=== PATIENT | male | born 1995 | race Caucasian/White ===

== ENCOUNTER 2016-09-12 14:02 | Emergency (ER) | payer BC, MEDICAID ==
[~2016-09-12] VITALS: Ht 185.4 cm; Wt 77.1 kg
[~2016-09-12 14:02] MED LIST: CLARTIN; LRT10T; MINO45TA PO; NAPR-243 PO; VITIAMS
[2016-09-12 15:29] LABS: BASOPHILS # (AUTO) 0.1 10^3/uL (0.0-0.1); BASOPHILS % (AUTO) 1 % (0-10); EOSINOPHILS # (AUTO) 0.2 10^3/uL (0.0-0.3); EOSINOPHILS % (AUTO) 3 % (0-10); LYMPHOCYTES # (AUTO) 1.4 X 10^3 (1.0-4.0); LYMPHOCYTES % (AUTO) 21 % (12-44); MEAN CORPUSCULAR HEMOGLOBIN 30 PG (25-34); MEAN CORPUSCULAR HGB CONC 36 G/DL (32-36); MEAN CORPUSCULAR VOLUME 85 FL (80-99); MEAN PLATELET VOLUME 10.2 FL (7.4-10.4); MONOCYTES # (AUTO) 0.3 X 10^3 (0.0-1.0); MONOCYTES % (AUTO) 5 % (0-12); NEUTROPHILS # (AUTO) 4.6 X 10^3 (1.8-7.8); NEUTROPHILS % (AUTO) 70 % (42-75); PLATELET COUNT 209 10^3/uL (130-400); RED BLOOD COUNT 5.56 10^6/uL (4.35-5.85); RED CELL DISTRIBUTION WIDTH 12.8 % (10.0-14.5); WHITE BLOOD COUNT 6.5 10^3/uL (4.3-11.0)
[2016-09-12 15:40] LABS: ALANINE AMINOTRANSFERASE 11 U/L (0-55); ANION GAP 7 MMOL/L (5-14); ASPARTATE AMINO TRANSFERASE 15 U/L (5-34); BILIRUBIN,TOTAL 0.5 MG/DL (0.1-1.0); BLOOD UREA NITROGEN 12 MG/DL (7-18); BUN/CREATININE RATIO 13; CALCIUM 9.5 MG/DL (8.5-10.1); CARBON DIOXIDE 26 MMOL/L (21-32); CHLORIDE 108 MMOL/L (98-107); CREATININE SERUM 0.93 MG/DL (0.60-1.30); GFR ESTIMATED > 60; GLUCOSE 95 MG/DL (70-105); LIPASE 18 U/L (8-78); POTASSIUM 4.2 MMOL/L (3.6-5.0); SODIUM 141 MMOL/L (135-145); TOTAL PROTEIN 7.1 G/DL (6.4-8.2)
[2016-09-12 15:40] LABS: BILIRUBIN,URINE NEGATIVE (NEGATIVE); KETONES,URINE NEGATIVE (NEGATIVE); LEUKOCYTE ESTERASE ,URINE NEGATIVE (NEGATIVE); NITRITE,URINE NEGATIVE (NEGATIVE); PH,URINE 6.5 (5-9); PROTEIN,URINE NEGATIVE (NEGATIVE); UROBILINOGEN,URINE NORMAL (NORMAL)
[2016-09-12 15:45] LABS: ALCOHOL < 10 MG/DL (<10)
[2016-09-12] MEDS ORDERED: NS IV 1000 ML 1,000 ML IV ONE (16:04)
[2016-09-12] MEDS ORDERED: FAMOTIDINE 20MG/2ML IV (PEPCID) IV STA (16:04)
[2016-09-12] MEDS ORDERED: ONDANSETRON 4 MG/2 ML (SDV) Z0FRAN IVP ONE (16:15)
[2016-09-12] MEDS ORDERED: IOHEXOL 350 MG/ML 100 ML (OMNIPAQUE 350) VIAL IV ONE (16:15)
[2016-09-12] MEDS ORDERED: NS 100 ML (IVPB) BAG IV ONE (16:15)
--- NOTE | 2016-09-12 16:56 | Diagnostic Imaging Report ---
PROCEDURE: CT abdomen and pelvis with contrast. TECHNIQUE: Multiple contiguous axial images were obtained through the abdomen and pelvis after administration of intravenous contrast. INDICATION: Abdominal pain, loss of appetite, nausea, vomiting. COMPARISON: October 04, 2011 FINDINGS: The visualized lung bases are clear. The liver is unremarkable. Calcified splenic granuloma. Otherwise, the spleen is unremarkable. The adrenal glands are unremarkable. The gallbladder is grossly unremarkable. The pancreas is unremarkable. The kidneys are unremarkable without evidence of hydronephrosis. No aneurysmal dilatation of the abdominal aorta. The urinary bladder is partially decompressed, though otherwise unremarkable. No bowel obstruction or pneumatosis. The appendix is not definitively identified. No definite secondary signs of acute appendicitis. No pneumatosis. Small amount of free fluid is noted within the lower pelvis. No free air. No adenopathy identified within abdomen or pelvis. No intramuscular hematoma. No acute osseous abnormality. IMPRESSION: 1. The appendix is not definitely identified, though no secondary signs of acute appendicitis. 2. Small amount of free fluid within the lower pelvis, of uncertain etiology. No definite evidence of free air. 3. Additional findings as above. Dictated by: Dictated on workstation # [id number]
[2016-09-12] MEDS ORDERED: ONDA8TAB13 PO (17:27)
--- NOTE | 2016-09-12 17:27 | ED General ---
General Chief Complaint: General Problems/Pain Stated Complaint: DIFF URINATING/PAIN IN HANDS AND FEET Nursing Triage Note: Pt c/o lower abd pain, inability to sleep, inability to urinate, sweaty palms and feet, and generally not feeling well for several days. Nursing Sepsis Screen: No Definite Risk Source of Information: Patient, Family Exam Limitations: No Limitations History of Present Illness Time Seen by Provider: 14:54 Initial Comments 21-year-old male patient presents to the emergency department complains of generalized lower abdominal pain and insomnia, hesitancy, sweaty palms, sweaty feet, and generalized fatigue. States onset one month ago. Reports 10 pound weight loss in the last month. Denies contacting his family practitioner for evaluation. Denies fevers. Patient denies traveling outside of the area or country, new foods, or close contacts with similar symptoms. Denies mosquito or tick bites. Patient is sexually active and denies using condoms consistently. Patient's been with his current partner 3 years. Does have a history of other sexual partners. Timing/Duration: Constant, Other (1 month onset) Modifying Factors: worse with Other (denies modifying factors) Allergies and Home Medications Allergies Coded Allergies: No Known Drug Allergies (Unverified , 06/23/10) Home Medications Loratadine 10 Mg Tab, PRN, (Reported) Ondansetron 8 Mg Tab.rapdis, 8 MG PO Q6H PRN for NAUSEA, #10 Ref 0 Prescribed by: KARLI WATSON on 09/12/16 1727 Constitutional: No chills, diaphoresis, No dizziness, No fever, malaise, other (fatigue) EENTM: no symptoms reported Respiratory: No cough, No short of breath, No stridor, No wheezing Cardiovascular: No chest pain, No palpitations, No syncope Gastrointestinal: abdominal pain, No constipation, diarrhea, No dysphagia, No hematemesis, No heartburn, No jaundice, loss of appetite, No melena, nausea, vomiting Genitourinary: see HPI, decreased output, No discharge, No dysuria, No frequency, No hematuria, hesitancy, No pain Musculoskeletal: no symptoms reported Skin: no symptoms reported Psychiatric/Neurological: No Symptoms Reported All Other Systems Reviewed Negative Unless Noted: Yes (Negative excepted noted.) Past [id number]-[id number] Hx Patient Social History Alcohol Use: Denies Use Recreational Drug Use: No Recent Foreign Travel: No Contact w/Someone Who Travel: No Recent Infectious Disease Expo: No Recent Hopitalizations: No Immunizations Up To Date Date of Influenza Vaccine: Mar 13, 2013 Surgeries HX Surgeries: No Respiratory Hx Respiratory Disorders: No Cardiovascular Hx Cardiac Disorders: No Neurological Hx Neurological Disorders: No Genitourinary Hx Genitourinary Disorders: No Gastrointestinal Hx Gastrointestinal Disorders: Yes Gastrointestinal Disorders: Gastroesophageal Reflux Musculoskeletal Hx Musculoskeletal Disorders: No Endocrine Hx Endocrine Disorders: No Reviewed Nursing Assessment Reviewed/Agree w Nursing PMH: Yes Family Medical History Significant Family History: No Pertinent Family Hx Physical Exam Vital Signs Vital Sign - Last 12Hours 09/12/16 14:32 Temp 99.3 Pulse 74 Resp 18 B/P (MAP) 135/72 Pulse Ox 97 O2 Delivery Room Air Capillary Refill : Less Than 3 Seconds General Appearance: No Apparent Distress, WD/WN, Thin HEENT: PERRL/EOMI, TMs Normal, Normal ENT Inspection, Pharyngeal Erythema Neck: Full Range of Motion, Normal Inspection, Non Tender, Supple, No Lymphadenopathy (L), No Lymphadenopathy (R) Respiratory: Lungs Clear, Normal Breath Sounds, No Respiratory Distress Cardiovascular: Regular Rate, Rhythm, No Edema, No Murmur, Normal Peripheral Pulses Gastrointestinal: Normal Bowel Sounds, No Organomegaly, Soft, No Distended, No Guarding, No Mass, No Rebound, Tenderness (generalized lower abdominal tenderness) Back: Normal Inspection, No CVA Tenderness, No Vertebral Tenderness Extremity: Normal Capillary Refill, Normal Inspection, Non Tender Neurologic/Psychiatric: Alert, Oriented x3, No Motor/Sensory Deficits, Normal Mood/Affect, primer charger II-XII Norm as Tested Skin: Normal Color, Warm/Dry Progress/Results/Core Measures Results/Orders Lab Results Laboratory Tests Test 09/12/16 15:01 09/12/16 15:34 Range/Units White Blood Count 6.5 4.3-11.0 10^3/uL Red Blood Count 5.56 4.35-5.85 10^6/uL Hemoglobin 16.8 13.3-17.7 G/DL Hematocrit 47 40-54 % Mean Corpuscular Volume 85 80-99 FL Mean Corpuscular Hemoglobin 30 25-34 PG Mean Corpuscular Hemoglobin Concent 36 32-36 G/DL Red Cell Distribution Width 12.8 10.0-14.5 % Platelet Count 209 130-400 10^3/uL Mean Platelet Volume 10.2 7.4-10.4 FL Neutrophils (%) (Auto) 70 42-75 % Lymphocytes (%) (Auto) 21 12-44 % Monocytes (%) (Auto) 5 0-12 % Eosinophils (%) (Auto) 3 0-10 % Basophils (%) (Auto) 1 0-10 % Neutrophils # (Auto) 4.6 1.8-7.8 X 10^3 Lymphocytes # (Auto) 1.4 1.0-4.0 X 10^3 Monocytes # (Auto) 0.3 0.0-1.0 X 10^3 Eosinophils # (Auto) 0.2 0.0-0.3 10^3/uL Basophils # (Auto) 0.1 0.0-0.1 10^3/uL Erythrocyte Sedimentation Rate 1 0-15 MM/HR Sodium Level 141 135-145 MMOL/L Potassium Level 4.2 3.6-5.0 MMOL/L Chloride Level 108 H 98-107 MMOL/L Carbon Dioxide Level 26 21-32 MMOL/L Anion Gap 7 5-14 MMOL/L Blood Urea Nitrogen 12 7-18 MG/DL Creatinine 0.93 0.60-1.30 MG/DL Estimat Glomerular Filtration Rate > 60 BUN/Creatinine Ratio 13 Glucose Level 95 70-105 MG/DL Calcium Level 9.5 8.5-10.1 MG/DL Total Bilirubin 0.5 0.1-1.0 MG/DL Aspartate Amino Transf (AST/SGOT) 15 5-34 U/L Alanine Aminotransferase (ALT/SGPT) 11 0-55 U/L Alkaline Phosphatase 88 40-136 U/L C-Reactive Protein High Sensitivity 0.01 0.00-0.50 MG/DL Total Protein 7.1 6.4-8.2 G/DL Albumin 5.0 H 3.2-4.5 G/DL Lipase 18 8-78 U/L TSH [place] Testing 1.21 0.35-4.94 UIU/ML Serum Alcohol < 10 <10 MG/DL Monoscreen NEGATIVE NEGATIVE Urine Color YELLOW Urine Clarity CLEAR Urine pH 6.5 5-9 Urine Specific Bruno 1.020 1.016-1.022 Urine Protein NEGATIVE NEGATIVE Urine Glucose (UA) NEGATIVE NEGATIVE Urine Ketones NEGATIVE NEGATIVE Urine Nitrite NEGATIVE NEGATIVE Urine Bilirubin NEGATIVE NEGATIVE Urine Urobilinogen NORMAL NORMAL MG/DL Urine Leukocyte Esterase NEGATIVE NEGATIVE Urine RBC (Auto) NEGATIVE NEGATIVE Urine RBC NONE /HPF Urine WBC NONE /HPF Urine Squamous Epithelial Cells NONE /HPF Urine Crystals NONE /LPF Urine Amorphous Sediment LARGE FLORIDALMA URATES H /LPF Urine Bacteria NEGATIVE /HPF Urine Casts NONE /LPF Urine Mucus NEGATIVE /LPF Urine Culture Indicated NO Urine Opiates Screen NEGATIVE NEGATIVE Urine Oxycodone Screen NEGATIVE NEGATIVE Urine Methadone Screen NEGATIVE NEGATIVE Urine Propoxyphene Screen NEGATIVE NEGATIVE Urine Barbiturates Screen NEGATIVE NEGATIVE Ur Tricyclic Antidepressants Screen NEGATIVE NEGATIVE Urine Phencyclidine Screen NEGATIVE NEGATIVE Urine Amphetamines Screen NEGATIVE NEGATIVE Urine Methamphetamines Screen NEGATIVE NEGATIVE Urine Benzodiazepines Screen NEGATIVE NEGATIVE Urine Cocaine Screen NEGATIVE NEGATIVE Urine Cannabinoids Screen POSITIVE H NEGATIVE My Orders Orders - KARLI WATSON Alcohol (09/12/16 15:23) Cbc With Automated Diff (09/12/16 15:23) Comprehensive Metabolic Panel (09/12/16 15:23) Drug Screen Stat (Urine) (09/12/16 15:23) Lipase (09/12/16 15:23) Thyroid Analyzer (09/12/16 15:23) Ua Culture If Indicated (09/12/16 15:23) Saline Lock/Iv-Start (09/12/16 15:23) Ct Abdomen/Pelvis W (09/12/16 16:04) Ns Iv 1000 Ml (Sodium Chloride 0.9%) (09/12/16 16:04) Ondansetron Injection (Zofran Injectio (09/12/16 16:15) Famotidine Injection (Pepcid Injection) (09/12/16 16:04) Hs C Reactive Protein (09/12/16 16:04) Erythrocyte Sedimentation Rate (09/12/16 16:04) Monotest (09/12/16 16:04) Iohexol Injection (Omnipaque 350 Mg/Ml 1 (09/12/16 16:15) Ns (Ivpb) (Sodium Chloride 0.9% Ivpb Bag (09/12/16 16:15) Tick Panel With Lyme Eia (09/12/16 16:15) Medications Given in ED Current Medications Medications Dose Ordered Sig/Rich Route Start Time Stop Time Status Last Admin Dose Admin Iohexol 100 ml ONCE ONCE IV 09/12/16 16:15 09/12/16 16:16 DC 09/12/16 16:34 100 ML Ondansetron HCl 4 mg ONCE ONCE IVP 09/12/16 16:15 09/12/16 16:16 DC 09/12/16 16:23 4 MG Sodium Chloride 100 ml ONCE ONCE IV 09/12/16 16:15 09/12/16 16:16 DC 09/12/16 16:34 80 ML Sodium Chloride 1,000 ml @ 0 mls/hr Q0M ONCE IV 09/12/16 16:04 09/12/16 16:07 DC 09/12/16 16:23 1,000 MLS/HR Vital Signs/I&O Vital Sign - Last 12Hours 09/12/16 09/12/16 14:32 17:53 Temp 99.3 Pulse 74 68 Resp 18 18 B/P (MAP) 135/72 Pulse Ox 97 97 O2 Delivery Room Air Intake and Output 09/13/16 00:00 Intake Total 1000 ml Balance 1000 ml Blood Pressure Mean: 93 Diagnostic Imaging Diagonstic Imaging: CT Plain Films/CT/US/NM/MRI: abdomen, pelvis Comments FINDINGS: The visualized lung bases are clear. The liver is unremarkable. Calcified splenic granuloma. Otherwise, the spleen is unremarkable. The adrenal glands are unremarkable. The gallbladder is grossly unremarkable. The pancreas is unremarkable. The kidneys are unremarkable without evidence of hydronephrosis. No aneurysmal dilatation of the abdominal aorta. The urinary bladder is partially decompressed, though otherwise unremarkable. No bowel obstruction or pneumatosis. The appendix is not definitively identified. No definite secondary signs of acute appendicitis. No pneumatosis. Small amount of free fluid is noted within the lower pelvis. No free air. No adenopathy identified within abdomen or pelvis. No intramuscular hematoma. No acute osseous abnormality. IMPRESSION: 1. The appendix is not definitely identified, though no secondary signs of acute appendicitis. 2. Small amount of free fluid within the lower pelvis, of uncertain etiology. No definite evidence of free air. 3. Additional findings as above. Dictated by: Dictated on workstation # [id number] Reviewed: Reviewed by Me (radiology report reviewed by me) Departure Communication Progress Notes All laboratory and diagnostic findings discussed with the patient and family. Patient reports feeling slightly better with IV fluids and medications. I have instructed patient to follow-up with his primary care physician for recheck and further testing. All return precautions were discussed with the patient and family as described in the discharge instructions of this report. All voiced understanding and agree with the treatment plan. Impression Impression: Primary Impression: Abdominal pain Qualified Codes: R10.30 - Lower abdominal pain, unspecified Additional Impressions: Fatigue Qualified Codes: R53.83 - Other fatigue Weight loss, unintentional Disposition: 01 HOME, SELF-CARE Condition: Improved Departure-Patient Inst. Decision time for Depature: 17:23 Referrals: ANNA BHAT MD (PCP/Family) Primary Care Physician Patient Instructions: Acute Abdomen (Belly Pain), Adult (DC), Fatigue (DC) Add. Discharge Instructions: All discharge instructions reviewed with patient and/or family. Voiced understanding. Medications as instructed. Tylenol [id number] and ibuprofen [id number] if needed. No use of marijuana. Push fluids. Clear liquid diet until symptoms improve, then increase diet slowly to a low-fat , bland diet. Follow-up with Dr. Stoner or Cristhian Johnson APRN for a recheck and further testing. Return to the emergency department for worsened symptoms or any other concerns. Scripts Ondansetron (Ondansetron Odt) 8 Mg Tab.rapdis 8 MG PO Q6H Y for NAUSEA, #10 TAB 0 Refills Prov: KARLI WATSON 09/12/16 KARLI WATSON Sep 12, 2016 17:27
[2016-09-12 17:53] VITALS: BP 122/68
[2016-09-14 13:21] LABS: EHRLICHIA CHAFFEENSIS G ABY <1:16 (<1:16)
[2016-09-14 13:26] LABS: IGG ROCKY MOUNTAIN SPOTTED FEV <1:16 (<1:16); IGM ROCKY MOUNTAIN SPOTTED FEV <1:10 (<1:10)
[2016-09-15 07:09] LABS: LYME ANTIBODY C 0.44 (0.00-0.90); TULAREMIA ANTIBODY <1:20
== END 2016-09-12 17:53 | disposition home or self-care (01) ==
LOC: EDUNIT# 14:02 → ER 14:05
DX: R10.30 Lower abdominal pain, unspecified (principal); R53.83 Other fatigue; R63.4 Abnormal weight loss
CPT/HCPCS: 36415; 74177; 80053; 80306; 80320; 81000; 83690; 84443; 85025; 85652; 86141; 86308; 86618; 86666; 86668; 86757; 96374; 96375

== ENCOUNTER 2018-09-11 10:00 | Emergency (ER) | payer BC ==
[~2018-09-11] VITALS: Ht 185.4 cm; Wt 81.6 kg
[~2018-09-11 10:00] MED LIST changes: +ONDA8TAB13 PO
--- OUTSIDE RECORDS SUMMARY | 2018-09-11 10:04 | XMS REPORT ---
Author Author DENNY YANG [facility] Address [address] [place] [address] Care Team Providers Care Continuous Improvement Facilitator Name Role Phone DENNY YANG Unavailable PROBLEMS Type Condition ICD9-CM Code WAU97-CT Code Onset Dates Condition Status SNOMED Code Problem Migraine without aura and without status migrainosus, not intractable G43.009 Active [id number] ALLERGIES No Known Allergies ENCOUNTERS Encounter Location Date Diagnosis [facility] IN [facility] [id number] [place] [phone] May, 2018 Acute gastroenteritis K52.9 ; Fatigue R53.83 and Acute sinusitis J01.90 [facility] [id number] [place] [phone] Jun, Cough R05 and Acute nasopharyngitis J00 [facility] [address] [phone] 08 Jan, 2017 Sebaceous cyst L72.3 [facility] [address] [phone] Dec, Migraine without aura and without status migrainosus, not intractable G43.009 IMMUNIZATIONS No Known Immunizations SOCIAL HISTORY Never Assessed REASON FOR VISIT N/V since today. reports nausea off et on for a few weeks. denies diarrhea. [email or web address] PLAN OF CARE Activity Details Follow Up if not improving with PCP or reg follow up Reason: VITAL SIGNS Height 72 in 2018-05-22 Weight 183.2 lbs 2018-05-22 Temperature 98.6 degrees Fahrenheit 2018-05-22 Heart Rate 82 bpm 2018-05-22 Respiratory Rate 20 2018-05-22 BMI 24.84 kg/m2 2018-05-22 Blood pressure systolic 124 mmHg 2018-05-22 Blood pressure diastolic 78 mmHg 2018-05-22 MEDICATIONS Medication Instructions Dosage Frequency Start Date End Date Duration Status Ondansetron HCl 8 MG Orally every 8 hours as needed 1 tablet May, 7 days Active PredniSONE 20 MG Orally Once a day 2 tablet 24h May, 5 days Active RESULTS No Results PROCEDURES No Known procedures INSTRUCTIONS MEDICATIONS ADMINISTERED No Known Medications MEDICAL (GENERAL) HISTORY Type Description Date Surgical History tonsillectomy and adenoidectomy
--- OUTSIDE RECORDS SUMMARY | 2018-09-11 10:05 | XMS REPORT | Continuity of Care Document ---
Author Author [facility] Organization [facility] Address Unknown Phone Unavailable Allergies Active Description Code Type Severity Reaction Onset Reported/Identified Relationship to Patient Clinical Status Yes No Known Drug Allergies [id number] Drug Allergy Unknown N/A 06/23/2010 Medications There is no data. Problems Date Dx Coded Attending Type Code Diagnosis Diagnosed By 10/05/2011 Ot 789.03 ABDOMINAL PAIN, RIGHT LOWER QUADRANT 12/02/2013 RIGOBERTO PENNINGTON DO S Ot 382.9 OTITIS MEDIA NOS 12/02/2013 RIGOBERTO PENNINGTON DO S Ot 462 ACUTE PHARYNGITIS 09/12/2016 Ot 786.50 CHEST PAIN NOS 09/12/2016 Ot V15.59 PERSONAL HISTORY OF OTHER INJURY 09/12/2016 RIGOBERTO PENNINGTON DO S Ot 397.0 TRICUSPID VALVE DISEASE 09/12/2016 RIGOBERTO PENNINGTON DO S Ot 786.50 CHEST PAIN NOS 09/12/2016 Ot 382.9 OTITIS MEDIA NOS 09/12/2016 Ot 462 ACUTE PHARYNGITIS 09/12/2016 KARLI MENCHACA Ot R10.30 LOWER ABDOMINAL PAIN, UNSPECIFIED 09/12/2016 KARLI MENCHACA Ot R53.83 OTHER FATIGUE 09/12/2016 KARLI MENCHACA Ot R63.4 ABNORMAL WEIGHT LOSS 09/12/2016 Ot 786.50 CHEST PAIN NOS 09/12/2016 Ot V15.59 PERSONAL HISTORY OF OTHER INJURY 09/12/2016 RIGOBERTO PENNINGTON DO S Ot 397.0 TRICUSPID VALVE DISEASE 09/12/2016 RIGOBERTO PENNINGTON DO S Ot 786.50 CHEST PAIN NOS 09/12/2016 Ot 382.9 OTITIS MEDIA NOS 09/12/2016 Ot 462 ACUTE PHARYNGITIS 09/12/2016 Ot 786.50 CHEST PAIN NOS 09/12/2016 Ot V15.59 PERSONAL HISTORY OF OTHER INJURY 09/12/2016 RIGOBERTO PENNINGTON DO S Ot 397.0 TRICUSPID VALVE DISEASE 09/12/2016 RIGOBERTO PENNINGTON DO S Ot 786.50 CHEST PAIN NOS 09/12/2016 Ot 382.9 OTITIS MEDIA NOS 09/12/2016 Ot 462 ACUTE PHARYNGITIS 09/14/2016 KARLI MENCHACA Ot R10.30 LOWER ABDOMINAL PAIN, UNSPECIFIED 09/14/2016 KARLI MENCHACA Ot R53.83 OTHER FATIGUE 09/14/2016 KARLI MENCHACA Ot R63.4 ABNORMAL WEIGHT LOSS 10/21/2016 Ot 786.50 CHEST PAIN NOS 10/21/2016 Ot V15.59 PERSONAL HISTORY OF OTHER INJURY 10/21/2016 NINFA PENNINGTON DOLINE S Ot 397.0 TRICUSPID VALVE DISEASE 10/21/2016 NINFA PENNINGTON DOLINE S Ot 786.50 CHEST PAIN NOS 10/21/2016 Ot 382.9 OTITIS MEDIA NOS 10/21/2016 Ot 462 ACUTE PHARYNGITIS 11/17/2016 Ot 786.50 CHEST PAIN NOS 11/17/2016 Ot V15.59 PERSONAL HISTORY OF OTHER INJURY 11/17/2016 NINFA PENNINGTON DOLINE S Ot 397.0 TRICUSPID VALVE DISEASE 11/17/2016 NINFA PENNINGTON DOLINE S Ot 786.50 CHEST PAIN NOS 11/17/2016 Ot 382.9 OTITIS MEDIA NOS 11/17/2016 Ot 462 ACUTE PHARYNGITIS Procedures There is no data. Results Test Result Range Complete blood count (CBC) with automated white blood cell (WBC) differential - 09/12/16 15:01 Blood leukocytes automated count (number/volume) 6.5 10*3/uL 4.3-11.0 Blood erythrocytes automated count (number/volume) 5.56 10*6/uL 4.35-5.85 Venous blood hemoglobin measurement (mass/volume) 16.8 g/dL 13.3-17.7 Blood hematocrit (volume fraction) 47 % 40-54 Automated erythrocyte mean corpuscular volume 85 [foz_us] 80-99 Automated erythrocyte mean corpuscular hemoglobin (mass per erythrocyte) 30 pg 25-34 Automated erythrocyte mean corpuscular hemoglobin concentration measurement ( mass/volume) 36 g/dL 32-36 Automated erythrocyte distribution width ratio 12.8 % 10.0-14.5 Automated blood platelet count (count/volume) 209 10*3/uL 130-400 Automated blood platelet mean volume measurement 10.2 [foz_us] 7.4-10.4 Automated blood neutrophils/100 leukocytes 70 % 42-75 Automated blood lymphocytes/100 leukocytes 21 % 12-44 Blood monocytes/100 leukocytes 5 % 0-12 Automated blood eosinophils/100 leukocytes 3 % 0-10 Automated blood basophils/100 leukocytes 1 % 0-10 Blood neutrophils automated count (number/volume) 4.6 10*3 1.8-7.8 Blood lymphocytes automated count (number/volume) 1.4 10*3 1.0-4.0 Blood monocytes automated count (number/volume) 0.3 10*3 0.0-1.0 Automated eosinophil count 0.2 10*3/uL 0.0-0.3 Automated blood basophil count (count/volume) 0.1 10*3/uL 0.0-0.1 Comprehensive metabolic panel - 09/12/16 15:01 Serum or plasma sodium measurement (moles/volume) 141 mmol/L 135-145 Serum or plasma potassium measurement (moles/volume) 4.2 mmol/L 3.6-5.0 Serum or plasma chloride measurement (moles/volume) 108 mmol/L 98-107 Carbon dioxide 26 mmol/L 21-32 Serum or plasma anion gap determination (moles/volume) 7 mmol/L 5-14 Serum or plasma urea nitrogen measurement (mass/volume) 12 mg/dL 7-18 Serum or plasma creatinine measurement (mass/volume) 0.93 mg/dL 0.60-1.30 Serum or plasma urea nitrogen/creatinine mass ratio 13 NRG Serum or plasma creatinine measurement with calculation of estimated glomerular filtration rate > NRG Serum or plasma glucose measurement (mass/volume) 95 mg/dL 70-105 Serum or plasma calcium measurement (mass/volume) 9.5 mg/dL 8.5-10.1 Serum or plasma total bilirubin measurement (mass/volume) 0.5 mg/dL 0.1-1.0 Serum or plasma alkaline phosphatase measurement (enzymatic activity/volume) 88 U/L 40-136 Serum or plasma aspartate aminotransferase measurement (enzymatic activity/ volume) 15 U/L 5-34 Serum or plasma alanine aminotransferase measurement (enzymatic activity/volume ) 11 U/L 0-55 Serum or plasma protein measurement (mass/volume) 7.1 g/dL 6.4-8.2 Serum or plasma albumin measurement (mass/volume) 5.0 g/dL 3.2-4.5 Lipase - 09/12/16 15:01 Lipase 18 U/L 8-78 Serum or plasma thyrotropin measurement by detection limit <=0.05 miu/l (units/ volume) - 09/12/16 15:01 Serum or plasma thyrotropin measurement by detection limit <=0.05 miu/l (units/ volume) 1.21 u[iU]/mL 0.35-4.94 Serum or plasma ethanol measurement (mass/volume) - 09/12/16 15:01 Serum or plasma ethanol measurement (mass/volume) < mg/dL <10 Serum heterophile antibody titer - 09/12/16 15:01 Serum heterophile antibody titer NEGATIVE NEGATIVE Serum or plasma C reactive protein measurement (mass/volume) - 09/12/16 15:01 Serum or plasma C reactive protein measurement (mass/volume) 0.01 mg /dL 0.00-0.50 Erythrocyte sedimentation rate by westergren method - 09/12/16 15:01 Erythrocyte sedimentation rate by westergren method 1 mm 0-15 Tick identification panel - 09/12/16 15:01 Serum Ehrlichia chaffeensis IgG antibody detection <1:16 <1:16 Serum Ehrlichia chaffeensis IgM antibody detection <1:10 <1:10 Serum Rickettsia rickettsii IgG antibody assay (units/volume) < <1:16 [place] spotted fever panel < <1:10 Francisella tularensis antibody assay <1:20 NRG Borrelia burgdorferi (Lyme disease) antibody 0.44 0.00- 0.90 Urine drug screening test - 09/12/16 15:34 Urine phencyclidine detection by screening method NEGATIVE NEGATIVE Urine benzodiazepines detection by screening method NEGATIVE NEGATIVE Urine cocaine detection NEGATIVE NEGATIVE Urine amphetamines detection by screening method NEGATIVE NEGATIVE Urine methamphetamine detection by screening method NEGATIVE NEGATIVE Urine cannabinoids detection by screening method POSITIVE NEGATIVE Urine opiates detection by screening method NEGATIVE NEGATIVE Urine barbiturates detection NEGATIVE NEGATIVE Screening urine tricyclic antidepressants detection NEGATIVE NEGATIVE Urine methadone detection by screening method NEGATIVE NEGATIVE Urine oxycodone detection NEGATIVE NEGATIVE Urine propoxyphene detection NEGATIVE NEGATIVE Complete urinalysis with reflex to culture - 09/12/16 15:34 Urine color determination YELLOW NRG Urine clarity determination CLEAR NRG Urine pH measurement by test strip 6.5 5-9 Specific gravity of urine by test strip 1.020 1.016- 1.022 Urine protein assay by test strip, semi-quantitative NEGATIVE NEGATIVE Urine glucose detection by automated test strip NEGATIVE NEGATIVE Erythrocytes detection in urine sediment by light microscopy NEGATIVE NEGATIVE Urine ketones detection by automated test strip NEGATIVE NEGATIVE Urine nitrite detection by test strip NEGATIVE NEGATIVE Urine total bilirubin detection by test strip NEGATIVE NEGATIVE Urine urobilinogen measurement by automated test strip (mass/volume) NORMAL NORMAL Urine leukocyte esterase detection by dipstick NEGATIVE NEGATIVE Automated urine sediment erythrocyte count by microscopy (number/high power field) NONE NRG Automated urine sediment leukocyte count by microscopy (number/high power field ) NONE NRG Bacteria detection in urine sediment by light microscopy NEGATIVE NRG Squamous epithelial cells detection in urine sediment by light microscopy NONE NRG Crystals detection in urine sediment by light microscopy NONE NRG Casts detection in urine sediment by light microscopy NONE NRG Mucus detection in urine sediment by light microscopy NEGATIVE NRG Complete urinalysis with reflex to culture NO NRG Amorphous sediment detection in urine sediment by light microscopy LARGE FLORIDALMA URATES NRG Encounters ACCT No. Visit Date/Time Discharge Status Pt. Type Provider Facility Loc./Unit Complaint [id number] 09/12/2016 14:05:00 09/12/2016 17:53:00 DIS Emergency KARLI MENCHACA [facility] ER DIFF URINATING/PAIN IN HANDS AND FEET [id number] 09/04/2013 13:30:00 12/02/2013 00:01:00 DIS Outpatient NINFA PENNINGTON DOLINE S [facility] SDC ESTELA MEDIAL [id number] 10/11/2012 13:12:00 10/11/2012 23:59:59 CLS Outpatient NINFA PENNINGTON DOLINE S [facility] CARD CHEST PAIN [id number] 12/03/2013 00:00:00 Document Registration [id number] 10/14/2011 20:58:00 Document Registration [id number] 10/04/2011 21:45:00 Document Registration [id number] 09/05/2018 12:40:00 09/05/2018 23:59:59 CLS Outpatient MIHAI LAC, [facility]
--- OUTSIDE RECORDS SUMMARY | 2018-09-11 10:05 | XMS REPORT ---
Author Author JOHN GAMEZ Organization [facility] Address [address] [place] [address] Care Team Providers Care Director Of Teaching And Learning Name Role Phone JOHN GAMEZ Unavailable PROBLEMS Type Condition ICD9-CM Code [id number] Code Onset Dates Condition Status SNOMED Code Problem Migraine without aura and without status migrainosus, not intractable G43.009 Active [id number] ALLERGIES No Known Allergies ENCOUNTERS Encounter Location Date Diagnosis [facility] [id number] [place] [phone] Jun, Cough R05 and Acute nasopharyngitis J00 [facility] [id number] [place] [phone] Jan, Sebaceous cyst L72.3 [facility] [id number] [place] [phone] Dec, Migraine without aura and without status migrainosus, not intractable G43.009 IMMUNIZATIONS No Known Immunizations SOCIAL HISTORY Never Assessed REASON FOR VISIT headaches- Pain behind left eye off and on, headaches have caused him to vomit, feels like a pinching feeling behind left eye--- has Dizzy spells--- Mom states he used to play football and has had several concussions-- Bere Martínez rn PLAN OF CARE VITAL SIGNS Height 72 in 2017-01-10 Weight 179 lbs 2017-01-10 Temperature 98.0 degrees Fahrenheit 2017-01-10 Heart Rate 82 bpm 2017-01-10 Respiratory Rate 18 2017-01-10 BMI 24.27 kg/m2 2017-01-10 Blood pressure systolic 122 mmHg 2017-01-10 Blood pressure diastolic 72 mmHg 2017-01-10 MEDICATIONS Medication Instructions Dosage Frequency Start Date End Date Duration Status Propranolol HCl 40 mg Orally Twice a day 1 tablet Dec, 30 day(s) Active Imitrex 100 mg Orally Twice a day 1 tablet as needed 12h Dec, Active Excedrin Migraine 250-250-65 MG Orally every 6 hrs 2 tablets as needed 6h Active RESULTS No Results PROCEDURES No Known procedures INSTRUCTIONS MEDICATIONS ADMINISTERED No Known Medications MEDICAL (GENERAL) HISTORY Type Description Date Surgical History tonsillectomy and adenoidectomy
[2018-09-11] MEDS ORDERED: fentaNYL INJECTION 100 MCG/2 ML AMP ONE (10:42)
[2018-09-11] MEDS ORDERED: ONDANSETRON 4 MG/2 ML (SDV) Z0FRAN ONE (10:42)
--- NOTE | 2018-09-11 10:56 | ED Abdominal Pain ---
General Stated Complaint: ABD PAIN Source of Information: Patient Exam Limitations: No Limitations History of Present Illness Date Seen by Provider: Sep 11, 2018 Time Seen by Provider: 10:54 Initial Comments To ER with reports of severe periumbilical and lower abdominal pain. He awakened this morning with right lower quadrant abdominal pain. Tender to palpation. He's had some nausea but no vomiting. States he feels like he needs to have a bowel movement but is unable to do so. Timing/Duration: 4-6 Hours Severity/Quality: Severe Location: RLQ Radiation: No Radiation Activities at Onset: None Associated Symptoms: No Fever/Chills; Nausea/Vomiting Allergies and Home Medications Allergies Coded Allergies: No Known Drug Allergies (Unverified , 06/23/10) Home Medications Hydrocodone/Acetaminophen 1 Each Tablet, 1 EACH PO Q4H PRN for PAIN-MODERATE Prescribed by: ZOEY MOELLER on 09/11/18 1239 Loratadine 10 Mg Tab, PRN, (Reported) Ondansetron 8 Mg Tab.rapdis, 8 MG PO Q6H PRN for NAUSEA Prescribed by: KARLI WATSON on 09/12/16 1727 Ondansetron 4 Mg Tab.rapdis, 4 MG PO Q4H PRN for NAUSEA/VOMITING Prescribed by: ZOEY MOELLER on 09/11/18 1239 Tamsulosin HCl 0.4 Mg Cap, 0.4 MG PO DAILY Prescribed by: ZOEY MOELLER on 09/11/18 1239 Patient Home Medication List Home Medication List Reviewed: Yes Review of Systems Review of Systems Constitutional: see HPI EENTM: No Symptoms Reported Respiratory: No Symptoms Reported Cardiovascular: No Symptoms Reported Gastrointestinal: See HPI, Abdominal Pain; Denies Constipated, Denies Diarrhea ; Nausea Genitourinary: No Symptoms Reported Musculoskeletal: no symptoms reported Skin: no symptoms reported Psychiatric/Neurological: No Symptoms Reported Endocrine: No Symptoms Reported Past Kawvizu-Cibzts-Scaoje Hx Patient Social History Recent Foreign Travel: No Contact w/Someone Who Travel: No Recent Hopitalizations: No Immunizations Up To Date Date of Influenza Vaccine: Mar 13, 2013 Past Medical History Gastroesophageal Reflux Family Medical History No Pertinent Family Hx Physical Exam Vital Signs Vital Signs - First Documented 09/11/18 10:45 Temp 97.4 Pulse 64 Resp 18 B/P (MAP) 132/67 (88) Pulse Ox 99 O2 Delivery Room Air Capillary Refill : Height/Weight/BMI Height: 6'1.00" Weight: 170lbs. 0.0oz. 77.518751zf; BMI Method:Stated General Appearance: WD/WN, no apparent distress HEENT: PERRL/EOMI, normal ENT inspection Respiratory: lungs clear, normal breath sounds, no respiratory distress, no accessory muscle use Cardiovascular: regular rate, rhythm, no murmur Gastrointestinal: normal bowel sounds, soft, tenderness Extremities: normal range of motion, non-tender Neurologic/Psychiatric: alert, normal mood/affect, oriented x 3 Skin: normal color, warm/dry Progress/Results/Core Measures Results/Orders Lab Results Laboratory Tests Test 09/11/18 10:50 09/11/18 12:05 Range/Units White Blood Count 9.6 4.3-11.0 10^3/uL Red Blood Count 5.25 4.35-5.85 10^6/uL Hemoglobin 16.1 13.3-17.7 G/DL Hematocrit 45 40-54 % Mean Corpuscular Volume 85 80-99 FL Mean Corpuscular Hemoglobin 31 25-34 PG Mean Corpuscular Hemoglobin Concent 36 32-36 G/DL Red Cell Distribution Width 12.6 10.0-14.5 % Platelet Count 268 130-400 10^3/uL Mean Platelet Volume 9.0 7.4-10.4 FL Neutrophils (%) (Auto) 67 42-75 % Lymphocytes (%) (Auto) 24 12-44 % Monocytes (%) (Auto) 8 0-12 % Eosinophils (%) (Auto) 1 0-10 % Basophils (%) (Auto) 0 0-10 % Neutrophils # (Auto) 6.4 1.8-7.8 X 10^3 Lymphocytes # (Auto) 2.3 1.0-4.0 X 10^3 Monocytes # (Auto) 0.8 0.0-1.0 X 10^3 Eosinophils # (Auto) 0.1 0.0-0.3 10^3/uL Basophils # (Auto) 0.0 0.0-0.1 10^3/uL Sodium Level 137 135-145 MMOL/L Potassium Level 3.8 3.6-5.0 MMOL/L Chloride Level 107 98-107 MMOL/L Carbon Dioxide Level 18 L 21-32 MMOL/L Anion Gap 12 5-14 MMOL/L Blood Urea Nitrogen 17 7-18 MG/DL Creatinine 0.92 0.60-1.30 MG/DL Estimat Glomerular Filtration Rate > 60 BUN/Creatinine Ratio 18 Glucose Level 131 H 70-105 MG/DL Calcium Level 10.1 8.5-10.1 MG/DL Corrected Calcium 9.7 8.5-10.1 MG/DL Total Bilirubin 0.4 0.1-1.0 MG/DL Aspartate Amino Transf (AST/SGOT) 15 5-34 U/L Alanine Aminotransferase (ALT/SGPT) 11 0-55 U/L Alkaline Phosphatase 62 40-136 U/L Total Protein 7.0 6.4-8.2 GM/DL Albumin 4.5 3.2-4.5 GM/DL Urine Color YELLOW Urine Clarity CLEAR Urine pH 6 5-9 Urine Specific [place] 1.015 L 1.016-1.022 Urine Protein 2+ H NEGATIVE Urine Glucose (UA) NEGATIVE NEGATIVE Urine Ketones 1+ H NEGATIVE Urine Nitrite NEGATIVE NEGATIVE Urine Bilirubin NEGATIVE NEGATIVE Urine Urobilinogen NORMAL NORMAL MG/DL Urine Leukocyte Esterase 1+ H NEGATIVE Urine RBC (Auto) 5+ H NEGATIVE Urine RBC TNTC H /HPF Urine WBC 0-2 /HPF Urine Crystals PRESENT H /LPF Urine Calcium Oxalate Crystals RARE H /LPF Urine Bacteria FEW H /HPF Urine Casts NONE /LPF Urine Mucus NEGATIVE /LPF Urine Culture Indicated YES Urine Opiates Screen NEGATIVE NEGATIVE Urine Oxycodone Screen NEGATIVE NEGATIVE Urine Methadone Screen NEGATIVE NEGATIVE Urine Propoxyphene Screen NEGATIVE NEGATIVE Urine Barbiturates Screen NEGATIVE NEGATIVE Ur Tricyclic Antidepressants Screen NEGATIVE NEGATIVE Urine Phencyclidine Screen NEGATIVE NEGATIVE Urine Amphetamines Screen NEGATIVE NEGATIVE Urine Methamphetamines Screen NEGATIVE NEGATIVE Urine Benzodiazepines Screen NEGATIVE NEGATIVE Urine Cocaine Screen NEGATIVE NEGATIVE Urine Cannabinoids Screen POSITIVE H NEGATIVE My Orders Orders - ZOEY MOELLER APRN Cbc With Automated Diff (09/11/18 10:53) Comprehensive Metabolic Panel (09/11/18 10:53) Ua Culture If Indicated (09/11/18 10:53) Iv Heplock-Insert (Order) (09/11/18 10:53) Ct Abd/Pelv W (Appendicitis) (09/11/18 10:53) Fentanyl Injection (Sublimaze Injection (09/11/18 11:00) Ondansetron Injection (Zofran Injectio (09/11/18 11:00) Drug Screen Stat (Urine) (09/11/18 11:20) Ketorolac Injection (Toradol Injection) (09/11/18 12:15) Promethazine Injection (Phenergan Injec (09/11/18 12:15) Fentanyl Injection (Sublimaze Injection (09/11/18 12:15) Urine Culture (09/11/18 12:05) Medications Given in ED Current Medications Medications Dose Ordered Sig/Rich Route Start Time Stop Time Status Last Admin Dose Admin Fentanyl Citrate 50 mcg ONCE ONCE IVP 09/11/18 11:00 09/11/18 11:01 DC 09/11/18 10:51 50 MCG Ketorolac Tromethamine 15 mg ONCE ONCE IVP 09/11/18 12:15 09/11/18 12:16 DC 09/11/18 12:18 15 MG Ondansetron HCl 8 mg ONCE ONCE IVP 09/11/18 11:00 09/11/18 11:01 DC 09/11/18 10:51 8 MG Promethazine HCl 12.5 mg ONCE ONCE IVP 09/11/18 12:15 09/11/18 12:16 DC 09/11/18 12:17 12.5 MG Vital Signs/I&O 09/11/18 10:45 Temp 97.4 Pulse 64 Resp 18 B/P (MAP) 132/67 (88) Pulse Ox 99 O2 Delivery Room Air Diagnostic Imaging Diagonstic Imaging: CT Comments NAME: KAYLEY STEWART [facility] REC#: [id number] PT STATUS: REG ER : 1995 PHYSICIAN: ZOEY MOELLER PEDIATRIC DERMATOLOGIST ADMIT DATE: 09/11/18/ER Draft Date of Exam:09/11/18 CT ABD/PELV W (APPENDICITIS) PROCEDURE: CT abdomen and pelvis with contrast, rule out appendicitis. TECHNIQUE: Multiple contiguous axial images were obtained through the abdomen and pelvis after the administration of intravenous contrast. INDICATION: Right lower quadrant pain. Comparison is made with prior CT from 09/12/2016. The lung bases are clear. The liver and gallbladder are unremarkable. No biliary ductal dilatation is seen. The pancreas and spleen are unremarkable. No adrenal mass is detected. There appears to be some mild to moderate right hydroureteronephrosis. The dilated right ureter is traced to the pelvis were there is approximately 2 mm calculus in the distal right ureter just proximal to the UVJ. Left kidney is unremarkable. Aorta is nonaneurysmal. Small and large bowel loops are of normal caliber. The appendix appears unremarkable. There is no free fluid. The unopacified bladder is unremarkable. Impression: 2 mm distal right ureteric calculus producing mild to moderate hydroureteronephrosis. No other significant abnormality is identified. Departure Communication (Admissions) 1249-states his pain is gone at this time Impression Primary Impression: Right ureteral calculus Disposition: HOME, SELF-CARE Condition: Stable Departure-Patient Inst. Decision time for Depature: 12:28 Referrals: ANNA BHAT MD (PCP/Family) Primary Care Physician GIUSEPPE LONG MD Patient Instructions: Kidney Stones in Adults Add. Discharge Instructions: 1. Increase fluid intake. Nausea medication as directed. Return to ER for fevers or intolerable pain. Take pain medication in addition to ibuprofen 800 mg every 8 hours for the next 3-4 days. Scripts Sulfamethoxazole/Trimethoprim (Bactrim Ds Tablet) 1 Each Tablet 1 EACH PO BID, #10 TAB Prov: ZOEY MOELLER APRN 09/11/18 Tamsulosin HCl (Flomax) 0.4 Mg Cap 0.4 MG PO DAILY, #14 CAP Prov: ZOEY MOELLER APRN 09/11/18 Ondansetron (Ondansetron Odt) 4 Mg Tab.rapdis 4 MG PO Q4H PRN for NAUSEA/VOMITING, #10 TAB Prov: ZOEY MOELLER APRN 09/11/18 Hydrocodone/Acetaminophen ([place] 5-325 Tablet) 1 Each Tablet 1 EACH PO Q4H PRN for PAIN-MODERATE MDD 10, #14 TAB Prov: ZOEY MOELLER APRN 09/11/18 Work/School Note: Work Release Form Date Seen in the Emergency Department: Sep 11, 2018 Return to Work: Sep 13, 2018 ZOEY MOELLER APRN Sep 11, 2018 10:56
[2018-09-11] MEDS ORDERED: ONDANSETRON 4 MG/2 ML (SDV) Z0FRAN IVP ONE (11:00)
[2018-09-11] MEDS ORDERED: fentaNYL INJECTION 100 MCG/2 ML AMP IVP ONE (11:00)
[2018-09-11 11:06] LABS: BASOPHILS % (AUTO) 0 % (0-10); EOSINOPHILS # (AUTO) 0.1 10^3/uL (0.0-0.3); EOSINOPHILS % (AUTO) 1 % (0-10); HEMATOCRIT 45 % (40-54); HEMOGLOBIN 16.1 G/DL (13.3-17.7); LYMPHOCYTES # (AUTO) 2.3 X 10^3 (1.0-4.0); LYMPHOCYTES % (AUTO) 24 % (12-44); MEAN CORPUSCULAR HEMOGLOBIN 31 PG (25-34); MEAN CORPUSCULAR HGB CONC 36 G/DL (32-36); MEAN CORPUSCULAR VOLUME 85 FL (80-99); MONOCYTES # (AUTO) 0.8 X 10^3 (0.0-1.0); MONOCYTES % (AUTO) 8 % (0-12); NEUTROPHILS # (AUTO) 6.4 X 10^3 (1.8-7.8); NEUTROPHILS % (AUTO) 67 % (42-75); PLATELET COUNT 268 10^3/uL (130-400); RED CELL DISTRIBUTION WIDTH 12.6 % (10.0-14.5); WHITE BLOOD COUNT 9.6 10^3/uL (4.3-11.0)
[2018-09-11 11:28] LABS: ALANINE AMINOTRANSFERASE 11 U/L (0-55); ALBUMIN 4.5 GM/DL (3.2-4.5); ALKALINE PHOSPHATASE 62 U/L (40-136); BILIRUBIN,TOTAL 0.4 MG/DL (0.1-1.0); BUN/CREATININE RATIO 18; CALCIUM 10.1 MG/DL (8.5-10.1); CARBON DIOXIDE 18 MMOL/L (21-32); CHLORIDE 107 MMOL/L (98-107); CREATININE SERUM 0.92 MG/DL (0.60-1.30); GFR ESTIMATED > 60; GLUCOSE 131 MG/DL (70-105); POTASSIUM 3.8 MMOL/L (3.6-5.0); SODIUM 137 MMOL/L (135-145)
[2018-09-11 12:12] LABS: BILIRUBIN,URINE NEGATIVE (NEGATIVE); CLARITY,URINE CLEAR; COLOR,URINE YELLOW; GLUCOSE, URINE (UA) NEGATIVE (NEGATIVE); KETONES,URINE 1+ (NEGATIVE); LEUKOCYTE ESTERASE ,URINE 1+ (NEGATIVE); NITRITE,URINE NEGATIVE (NEGATIVE); PH,URINE 6 (5-9); PROTEIN,URINE 2+ (NEGATIVE); UROBILINOGEN,URINE NORMAL (NORMAL)
[2018-09-11] MEDS ORDERED: PROMETHAZINE INJ 25 MG/ML (PHENERGAN) AMP IVP ONE (12:15)
[2018-09-11] MEDS ORDERED: fentaNYL INJECTION 100 MCG/2 ML AMP IVP PRN (12:15)
[2018-09-11] MEDS ORDERED: KETOROLAC 30 MG/ML VIAL IVP ONE (12:15)
[2018-09-11 12:23] LABS: AMPHETAMINE SCREEN, URINE NEGATIVE (NEGATIVE); BARBITURATE SCREEN URINE NEGATIVE (NEGATIVE); BENZODIAZEPINES SCREEN URINE NEGATIVE (NEGATIVE); CANNABINOID SCREEN, URINE POSITIVE (NEGATIVE); COCAINE SCREEN URINE NEGATIVE (NEGATIVE); METHADONE STAT NEGATIVE (NEGATIVE); METHAMPHETAMINE SCREEN URINE S NEGATIVE (NEGATIVE); OPIATE SCREEN URINE NEGATIVE (NEGATIVE); OXYCODONE STAT NEGATIVE (NEGATIVE); PROPOXYPHENE STAT NEGATIVE (NEGATIVE); TRICYCLIC ANTIDEPRESSANTS SCRE NEGATIVE (NEGATIVE)
--- NOTE | 2018-09-11 12:31 | Diagnostic Imaging Report ---
PROCEDURE: CT abdomen and pelvis with contrast, rule out appendicitis. TECHNIQUE: Multiple contiguous axial images were obtained through the abdomen and pelvis after the administration of intravenous contrast. INDICATION: Right lower quadrant pain. Comparison is made with prior CT from 09/12/2016. The lung bases are clear. The liver and gallbladder are unremarkable. No biliary ductal dilatation is seen. The pancreas and spleen are unremarkable. No adrenal mass is detected. There appears to be some mild to moderate right hydroureteronephrosis. The dilated right ureter is traced to the pelvis were there is approximately 2 mm calculus in the distal right ureter just proximal to the UVJ. Left kidney is unremarkable. Aorta is nonaneurysmal. Small and large bowel loops are of normal caliber. The appendix appears unremarkable. There is no free fluid. The unopacified bladder is unremarkable. Impression: 2 mm distal right ureteric calculus producing mild to moderate hydroureteronephrosis. No other significant abnormality is identified. Dictated by: Dictated on workstation # [id number]
[2018-09-11 12:36] LABS: BACTERIA,URINE FEW /HPF; CALCIUM OXALATE CRYSTALS,UR RARE /LPF; RBC,URINE TNTC /HPF; WBC,URINE 0-2 /HPF
[2018-09-11] MEDS ORDERED: HYDR-4226 PO (12:39)
[2018-09-11] MEDS ORDERED: TAMS0.4C98 PO (12:39)
[2018-09-11] MEDS ORDERED: ONDA4TAB11 PO (12:39)
[2018-09-11] MEDS ORDERED: SULF1TAB35 PO (12:51)
[2018-09-11 13:00] VITALS: BP 131/80
== END 2018-09-11 13:00 | disposition home or self-care (01) ==
LOC: EDUNIT# 10:00 → ER 10:01
DX: N13.2 Hydronephrosis with renal and ureteral calculous obstruction (principal); K21.9 Gastro-esophageal reflux disease without esophagitis
CPT/HCPCS: 36415; 74177; 80053; 80306; 81000; 85025; 87088; 96374; 96375